=== PATIENT | male | born 1995 | race African-American/Black ===

== ENCOUNTER 2021-11-16 01:00 | Emergency (ER) | payer SELFPAY ==
[~2021-11-16] VITALS: Ht 180.3 cm; Wt 52.2 kg
--- NOTE | 2021-11-16 01:20 | NUR ---
pt placed in room 3. states he had covid 1 month ago. states he wants to be tested again.
--- NOTE | 2021-11-16 01:26 | NUR ---
Dr. Lawson at bedside for MSE.
[2021-11-16 01:45] LABS: HEMATOCRIT 35.7 % (36.7-47.1); MEAN CORPUSCULAR VOLUME 90.4 fL (73.0-96.2); PLATELET COUNT (AUTO) 172 K/uL (152-348)
--- NOTE | 2021-11-16 01:47 | NUR ---
pt declined to wait for discharge instructions. pt left emergency room.
[2021-11-16 01:49] VITALS: BP 103/46
[2021-11-16 01:57] LABS: ALANINE AMINOTRANSFERASE 40 U/L (16-63); ALKALINE PHOSPHATASE 75 U/L (50-136); ASPARTATE AMINOTRANSFERASE 37 U/L (15-37); BILIRUBIN,DIRECT 0.1 mg/dL (0.0-0.2); BILIRUBIN,TOTAL 0.3 mg/dL (0.2-1.0); CARBON DIOXIDE 27 mmol/L (21-32); CHLORIDE 105 mmol/L (98-107); CREATININE 0.6 mg/dL (0.6-1.3); GLUCOSE 94 mg/dL (74-106); POTASSIUM 3.4 mmol/L (3.5-5.1); TOTAL PROTEIN, SERUM 7.4 g/dL (6.4-8.2); UREA NITROGEN, BLOOD 19 mg/dL (7-18)
== END 2021-11-16 01:49 | disposition left against medical advice (07) ==
LOC: ER 01:03
DX: Z00.00 Encounter for general adult medical examination without abnormal findings (principal); Z59.00 Homelessness unspecified
CPT/HCPCS: 36415; 85025; A4663